=== PATIENT | male | born 1985 | race Caucasian/White ===

== ENCOUNTER 2024-12-19 18:40 | Emergency (ER) | payer BC ==
[2024-12-19] MEDS ORDERED: Sterile H2O 10 ml IJ ONE (19:36)
--- NOTE | 2024-12-19 19:38 | ERPHSYRPT ---
- History of Present Illness Time Seen by Provider: 12/19/24 19:20 Source: patient Exam Limitations: no limitations Patient Subjective Stated Complaint: cough x 1 month, worse since Triage Nursing Assessment: Pt arrives to ED bed 6 ambulatory, a &ox3. Pt placed on monitor. C/o intermittent cough x 1 month. Productive at times with clear, thin mucus. Denies fever, victoria. Reports joint aches from time to time. Afebrile on exam, resp easy and unlabored. O2 sats WNL on RA. Pt not coughing at this time. C/o R rib pain when coughing. Pt visitor reports she has a slight cough also. Pt states was seen at [facility] last and had a swab (unsure which type) and a CXR. Per pt, CXR negative but he was told his asthma had flared up. Was prescribed inhaler. States it helped slightly. Physician History: 39-year-old male current smoker history of asthma presents to our ED for evaluation of progressive cough and shortness of breath. Patient states that symptoms started approximately 1 month ago. Cough has got worse over the past week. Patient reports the cough is productive of clear mucus. No fever. Patient reports that he went to an outside hospital approximately 1 week ago. Patient states that chest x-ray was normal patient was given an inhaler. However symptoms have not improved. Patient also reports some right rib discomfort during forceful coughs. No trauma. Symptoms are progressive. Symptoms are moderate in intensity. No specific worsening or improving factors. Patient voices no other complaints or concerns at this time. Significant other at bedside. Portions of this note were created with voice recognition technology. There may be grammatical, spelling, punctuation or sound alike errors Timing/Duration: today Activities at Onset: none Severity of Dyspnea-Max: moderate Possible Cause: occasional episodes Modifying Factors: Improves With: activity Allergies/Adverse Reactions: No Known Drug Allergies Allergy (Unverified 12/19/24 19:05) Hx Tetanus, Diphtheria Vaccination/Date Given: No Hx Influenza Vaccination/Date Given: No Travel Risk - International Travel Have you traveled outside of the country in past 3 weeks: No - Emerging Infectious Disease Are you exhibiting symptoms associated with any current EIDs: Yes Symptoms: Cough: New Onset - Review of Systems All Other Systems: Reviewed and Negative - Past Medical History Pertinent Past Medical History: No Respiratory History: Asthma - Past Surgical History Past Surgical History: Yes Other Surgical History: second toe right foot - Social History Smoking Status: Current every day smoker Exposure to second hand smoke: No Drug Use: other - Social Determinants of Health Will the patient participate in the screening: Declined to provide - Nursing Vital Signs Nursing Vital Signs: Initial Vital Signs Pulse Rate 102 H 12/19/24 18:58 Respiratory Rate 16 12/19/24 18:58 Blood Pressure 121/76 12/19/24 18:58 O2 Sat by Pulse Oximetry 97 12/19/24 18:58 Pain Scale Pain Intensity 4 - Physical Exam General Appearance: no apparent distress, alert Eye Exam: PERRL/EOMI Ears, Nose, Throat Exam: hearing grossly normal, normal ENT inspection Neck Exam: normal inspection, supple Respiratory Exam: diminished breath sounds, wheezing Cardiovascular/Chest Exam: normal heart sounds, regular rate/rhythm Abdominal/Gastrointestinal Exam: soft, No tenderness, No distention, No mass Extremity Exam: non-tender, normal range of motion, normal inspection, no calf tenderness, no pedal edema Neurologic Exam: alert, oriented x 3, cooperative, speech clinician II-XII nml as tested, sensation nml, No motor deficits Skin Exam: normal color, warm, No dry Lymphatic Exam: No adenopathy SpO2 Interpretation: normal SpO2: 97 O2 Delivery: Room Air - Course Nursing assessment & vital signs reviewed: Yes - Radiology Exams Chest X-ray Interpretation: Teleradiologist Report (No acute findings) Ordered Tests: Active Orders 24 hr Category Date Time Status Bore Miner Operator STAT Care 12/19/24 19:32 Active IV Insertion STAT Care 12/19/24 19:31 Active Pulse Oximetry (ED) STAT Care 12/19/24 19:31 Active CHEST 1 VIEW (PORTABLE) Stat Exams 12/19/24 20:51 Taken BLOOD CULTURE Stat Lab 12/19/24 19:48 Received CBC W DIFF Stat Lab 12/19/24 19:42 Completed CMP Stat Lab 12/19/24 19:42 Completed D-DIMER QUANTITATIVE Stat Lab 12/19/24 19:42 Completed TROPONIN Q4H Lab 12/19/24 19:42 Completed TROPONIN Q4H Lab 12/19/24 23:45 Ordered TROPONIN Q4H Lab 12/20/24 03:45 Ordered Respiratory Therapy Assessment DAILY RT 12/19/24 20:21 Active Medication Summary Generic Name Dose Route Start Last Admin Trade Name Vasquez PRN Reason Stop Dose Admin Magnesium Sulfate/Dextrose 100 mls @ 100 mls/hr 12/19/24 21:00 12/19/24 22:01 Magnesium 1 Gm / 100 Ml D5w IV 12/19/24 22:59 Infused Q1H THANIA Infusion Potassium Chloride 20 meq in 100 mls @ 50 mls/hr 12/19/24 21:00 12/19/24 23:33 Potassium Chloride 20 Meq In Water 100ml IV 12/20/24 00:59 Not Given Q2H THANIA Sodium Chloride 1,000 mls @ 125 mls/hr 12/19/24 21:04 12/19/24 21:07 Sodium Chloride 0.9% 1000 Ml IV 12/20/24 05:03 125 mls/hr .Q8H STA Administration Discontinued Medications Generic Name Dose Route Start Last Admin Trade Name Vasquez PRN Reason Stop Dose Admin Albuterol/Ipratropium 3 ml 12/19/24 19:31 12/19/24 20:21 Ipratropium/Albuterol Sulfate 3 Ml Ampul.Neb IH 12/19/24 19:32 3 ml STAT ONE Administration Albuterol/Ipratropium Confirm 12/19/24 19:42 Ipratropium/Albuterol Sulfate 3 Ml Ampul.Neb Administered 12/19/24 19:43 Dose 3 ml IH .STK-MED ONE Methylprednisolone Sodium 0 mg 12/19/24 19:31 12/19/24 19:39 Succinate 125 mg/ Sterile IV 12/19/24 19:32 125 mg Water 2 ml STAT ONE Administration Sodium Chloride Confirm 12/19/24 21:06 Sodium Chloride 0.9% 1000 Ml Administered 12/19/24 21:07 Dose 1,000 mls @ ud .ROUTE .STK-MED ONE Methylprednisolone Sodium Succinate Confirm 12/19/24 19:37 Methylprednis Sod Succ 125 Mg/2 Ml Vial Administered 12/19/24 19:38 Dose 125 mg .ROUTE .STK-MED ONE Potassium Chloride 40 meq 12/19/24 20:52 12/19/24 21:00 Potassium Chloride Tab 10 Meq Tab PO 12/19/24 20:53 40 meq STAT ONE Administration Potassium Chloride Confirm 12/19/24 20:59 Potassium Chloride Tab 10 Meq Tab Administered 12/19/24 21:00 Dose 40 meq .ROUTE .STK-MED ONE Sterile Water Confirm 12/19/24 19:36 Water For Injection,Sterile 10 Ml Vial Administered 12/19/24 19:37 Dose 10 ml IJ .STK-MED ONE Lab/Rad Data: Laboratory Result Diagrams 12/19/24 19:42 12/19/24 19:42 Laboratory Results 12/19/24 12/19/24 12/19/24 Range/Units 19:50 19:42 19:42 WBC (4.23-9.07) x10^3/uL RBC (4.63-6.08) x10^6/uL Hgb (13.7-17.5) g/dL Hct (40.1-51.0) % MCV (79.0-92.2) fL MCH (25.7-32.2) pg MCHC (32.3-36.5) g/dL RDW (11.6-14.4) % Plt Count (163-337) x10^3/uL MPV (9.4-12.4) fL Gran % (34.0-67.9) % Immature Gran % (Auto) (0.001-0.429) % Nucleat RBC Rel Count (0.00-0.2) % Eos # (Auto) (0.04-0.54) x10^3/uL Immature Gran # (Auto) (0.001-0.031) x10^3u/L Absolute Lymphs (auto) (1.32-3.57) x10^3/uL Absolute Monos (auto) (0.30-0.82) x10^3/uL Absolute Nucleated RBC (0.00-0.012) x10^3u/L Lymphocytes % (21.8-53.1) % Monocytes % (5.3-12.2) % Eosinophils % (0.8-7.0) % Basophils % (0.2-1.2) % Absolute Granulocytes (1.78-5.38) x10^3/uL Basophils # (0.01-0.08) x10^3/uL D-Dimer < 0.19 (0.0-0.50) mg/L Sodium (135-145) mmol/L Potassium (3.5-5.1) mmol/L Chloride (98-107) mmol/L Carbon Dioxide (22-30) mmol/L Anion Gap (5-15) MEQ/L BUN (9-20) mg/dL Creatinine (0.66-1.25) mg/dL Estimated GFR ML/MIN Glucose (74-106) mg/dL Calcium (8.4-10.2) mg/dL Total Bilirubin (0.2-1.3) mg/dL AST (17-59) U/L ALT (0-50) U/L Alkaline Phosphatase (38-126) U/L Troponin I < 0.012 (0.000-0.033) ng/mL Serum Total Protein (6.3-8.2) g/dL Albumin (3.5-5.0) g/dL Influenza Type A Ag NEGATIVE (NEGATIVE) Influenza Type B Ag NEGATIVE (NEGATIVE) RSV (PCR) NEGATIVE (NEGATIVE) SARS-CoV-2 (PCR) NEGATIVE (NEGATIVE) 12/19/24 12/19/24 Range/Units 19:42 19:42 WBC 13.7 H (4.23-9.07) x10^3/uL RBC 4.46 L (4.63-6.08) x10^6/uL Hgb 13.9 (13.7-17.5) g/dL Hct 41.5 (40.1-51.0) % MCV 93.0 H (79.0-92.2) fL MCH 31.2 (25.7-32.2) pg MCHC 33.5 (32.3-36.5) g/dL RDW 13.8 (11.6-14.4) % Plt Count 289 (163-337) x10^3/uL MPV 10.1 (9.4-12.4) fL Gran % 72.8 H (34.0-67.9) % Immature Gran % (Auto) 0.4 (0.001-0.429) % Nucleat RBC Rel Count 0.0 (0.00-0.2) % Eos # (Auto) 0.21 (0.04-0.54) x10^3/uL Immature Gran # (Auto) 0.05 H (0.001-0.031) x10^3u/L Absolute Lymphs (auto) 2.50 (1.32-3.57) x10^3/uL Absolute Monos (auto) 0.95 H (0.30-0.82) x10^3/uL Absolute Nucleated RBC 0.00 (0.00-0.012) x10^3u/L Lymphocytes % 18.2 L (21.8-53.1) % Monocytes % 6.9 (5.3-12.2) % Eosinophils % 1.5 (0.8-7.0) % Basophils % 0.2 (0.2-1.2) % Absolute Granulocytes 9.97 H (1.78-5.38) x10^3/uL Basophils # 0.03 (0.01-0.08) x10^3/uL D-Dimer (0.0-0.50) mg/L Sodium 141 (135-145) mmol/L Potassium 3.1 L (3.5-5.1) mmol/L Chloride 104 (98-107) mmol/L Carbon Dioxide 26 (22-30) mmol/L Anion Gap 13.5 (5-15) MEQ/L BUN 6 L (9-20) mg/dL Creatinine 0.88 (0.66-1.25) mg/dL Estimated GFR 111.5 ML/MIN Glucose 99 (74-106) mg/dL Calcium 8.6 (8.4-10.2) mg/dL Total Bilirubin 0.20 (0.2-1.3) mg/dL AST 18 (17-59) U/L ALT 13 (0-50) U/L Alkaline Phosphatase 93 (38-126) U/L Troponin I (0.000-0.033) ng/mL Serum Total Protein 7.0 (6.3-8.2) g/dL Albumin 4.3 (3.5-5.0) g/dL Influenza Type A Ag (NEGATIVE) Influenza Type B Ag (NEGATIVE) RSV (PCR) (NEGATIVE) SARS-CoV-2 (PCR) (NEGATIVE) - Progress Progress: improved Air Movement: good Progress Note: 39-year-old male current smoker history of asthma presents to our ED for evaluation of progressive cough and shortness of breath. Patient states that symptoms started approximately 1 month ago. Physical exam reveals diminished breath sounds. Faint expiratory wheezing at bases. Patient received Solu- Medrol and DuoNeb treatment. Breathing significantly improved. Chest x-ray negative for acute pathology. Patient has a leukocytosis of 13.7. Potassium 3.1. Patient received 2 g of mag, 40 mill equivalents p.o. potassium and 40 mEq K rider. Patient ambulated throughout our ED/ambulatory pulse oximetry. O2 sat with exertion maintained at 97%. Patient was not tachypneic or did not experience labored breathing. D-dimer negative. Patient states he is ready for discharge. Will discharge patient home with follow-up with Dr. Milton as patient does not have a primary care doctor to follow-up with. Patient may benefit from outpatient pulmonology consultation. A prescription for prednisone, azithromycin and Augmentin forwarded to patient's pharmacy as well. Plan of care discussed with patient. Significant other at bedside. They voiced no other complaints or concerns at this time. Of note patient declined a second 20 mEq K rider. Patient states he wanted to go home. History obtained from patient and his significant other at bedside. Differential diagnosis includes atypical pneumonia, COPD exacerbation, bronchitis Dr. Dao independently reviewed and interpreted the chest x-ray. No acute findings observed. Formal read requested. Formal read agrees that there are no acute findings/per on-call radiologist Portions of this note were created with voice recognition technology. There may be grammatical, spelling, punctuation or sound alike errors Complexity of problem addressed is moderate acute complicated. No critical care time. Complexity of data reviewed and analyzed is moderate. Test ordered chest reviewed results analyzed and correlated clinically with history and physical exam. Risk of complication and or risk of morbidity/mortality of patient management is moderate. A prescription for azithromycin, Augmentin and prednisone forwarded to patient's pharmacy. Vital stable. Time spent to discharge patient is approximately 15 minutes. Plan of care established for shared decision making. No social determinants of health present to impede follow-up. Portions of this note were created with voice recognition technology. There may be grammatical, spelling, punctuation or sound alike errors 12/19/24 23:44 Blood Culture(s) Obtained: Yes Antibiotics given: Yes Counseled pt/family regarding: diagnosis, need for follow-up - Departure Departure Disposition: Home Clinical Impression: Shortness of breath, Bronchitis Condition: Stable Critical Care Time: No Referrals: JONATHAN KAHN [ACTIVE STAFF, [facility]] - Follow up/PCP as directed MELANI MILTON DO [ACTIVE STAFF, [facility]] - Follow up/PCP as directed Additional Instructions: Please follow-up with Dr. Milton within 48 hours for reevaluation. You may benefit from a pulmonology consultation. Discharge/Care Plan SWAPNIL SPENCER was seen on 12/19/24 in the Emergency Room. The patient was counseled regarding Diagnosis,Lab results, Imaging studies, need for follow up and when to return to the Emergency Room. Prescriptions given: Discharge Note I have spoken with the patient and/or caregivers. I have explained the patient's condition, diagnosis and treatment plan based on the information available to me at this time. I have answered the patient's and/or caregiver's questions and addressed any concerns. The patient and/or caregivers have as good understanding of the patient's diagnosis, condition and treatment plan as can be expected at this point. The vital signs have been stable. The patient's condition is stable and appropriate for discharge from the emergency department. The patient will pursue further outpatient evaluation with the primary care physician or other designated or consulting physician as outlined in the discharge instructions. The patient and/or caregivers are agreeable to this plan of care and follow-up instructions have been explained in detail. The patient and/or caregivers have received these instruction. The patient/and or caregivers are aware that any significant change in condition or worsening of symptoms should prompt an immediate return to this or the closest emergency department or call 911. Prescriptions: Amox Tr/Potass Clav. 875 mg [Augmentin 875-125 Tablet] 875 mg PO BID 7 Days #14 tablet Prednisone 10 mg [Deltasone 10 mg] 40 mg PO DAILY 3 Days #12 tablet Azithromycin 250 mg [Zithromax 250 MG TABLET] 250 mg PO ZPACK #6 tablet
[2024-12-19] MEDS: solu-MEDROL 125 MG, Sterile H2O 10 ml 2 ML IV ONE (19:39)
[2024-12-19] MEDS ORDERED: DUONEB 0.5-3 MG/3 ml Neb IH ONE (19:42)
[2024-12-19 20:03] LABS: BASOPHIL % 0.2 % (0.2-1.2); Basophil (Absolute #) 0.03 x10^3/uL (0.01-0.08); Eosinophil (Absolute #) 0.21 x10^3/uL (0.04-0.54); Hematocrit 41.5 % (40.1-51.0); Hemoglobin 13.9 g/dL (13.7-17.5); IMMATURE GRAN # 0.05 x10^3u/L (0.001-0.031); IMMATURE GRAN % 0.4 % (0.001-0.429); Lymphocyte (Absolute #) 2.50 x10^3/uL (1.32-3.57); Mean Corpuscular Hemoglobin 31.2 pg (25.7-32.2); Mean Corpuscular Hgb Concent. 33.5 g/dL (32.3-36.5); Monocyte (Absolute #) 0.95 x10^3/uL (0.30-0.82); NUCLEATED RBC # 0.00 x10^3u/L (0.00-0.012); NUCLEATED RBC % 0.0 % (0.00-0.2); Platelet Count 289 x10^3/uL (163-337); Red Blood Count 4.46 x10^6/uL (4.63-6.08); White Blood Count 13.7 x10^3/uL (4.23-9.07)
[2024-12-19] MEDS: DUONEB 0.5-3 MG/3 ml Neb IH ONE (20:21)
[2024-12-19 20:28] LABS: Calcium 8.6 mg/dL (8.4-10.2); Carbon Dioxide 26.0 mmol/L (22-30); Creatinine 1 0.88 mg/dL (0.66-1.25); EST GLOMERULAR FILTRATION RATE 111.5 ML/MIN; Glucose 99.0 mg/dL (74-106); Potassium 3.1 mmol/L (3.5-5.1); SGOT/AST 18.0 U/L (17-59); SGPT/ALT 13.0 U/L (0-50); Total Protein 7.0 g/dL (6.3-8.2)
[2024-12-19 20:47] LABS: INFLUENZA A NEGATIVE (NEGATIVE); INFLUENZA B NEGATIVE (NEGATIVE); RESPIRATORY SYNCTIAL VIRUS NEGATIVE (NEGATIVE); SARS-CoV-2 Xpert Express NEGATIVE (NEGATIVE)
[2024-12-19] MEDS ORDERED: Klor Con ONE (20:59)
[2024-12-19] MEDS ORDERED: POTASSIUM CHLORIDE 20 mEq IN WATER 100ML 100 ML IV ONE (20:59)
[2024-12-19] MEDS ORDERED: Magnesium 1 Gm / 100 Ml D5W*** 100 ML IV ONE ×2 (20:59→22:01)
[2024-12-19] MEDS: Klor Con PO ONE (21:00)
[2024-12-19] MEDS: POTASSIUM CHLORIDE 20 mEq IN WATER 100ML 20 MEQ/100 ML BAG IV SCH (21:08)
[2024-12-19] MEDS: Magnesium 1 Gm / 100 Ml D5W*** 100 ML IV SCH (21:08)
[2024-12-19 23:07] VITALS: BP 120/81; PULSE 79; RESP 14
[2024-12-19 23:41] VITALS: O2SAT 97
--- NOTE | 2024-12-20 08:40 | XRAY ---
Indication: Short of breath. Comparison: None Portable chest demonstrates normal heart, lungs, and bony thorax with a few incidental tiny calcified granulomas.
== END 2024-12-19 23:49 | disposition home or self-care (01) ==
LOC: ED 18:40
DX: R06.02 Shortness of breath (principal); J40 Bronchitis, not specified as acute or chronic; R05.2 Subacute cough; Z79.52 Long term (current) use of systemic steroids; Z79.899 Other long term (current) drug therapy; Z72.0 Tobacco use